=== PATIENT | male | born 1990 | race Caucasian/White ===

== ENCOUNTER 2022-04-19 16:46 | Emergency (ER) | payer OTHER ==
[~2022-04-19 16:46] MED LIST: BACTRIM DS TAB1 EACH PO; NORCO 7.5-3251 EACH PO; PERCOCET 5/325 T1 EA PO; TYLENOL WITH C1 EACH PO
[2022-04-19 18:12] LABS: HEMOGLOBIN 16.2 gm/dl (14.0-17.5); RED BLOOD COUNT 4.89 M/UL (4.20-5.50); WHITE BLOOD COUNT 12.8 K/UL (4.5-11.0)
[2022-04-19 18:33] LABS: BUN/CREATININE RATIO 8 (0-10)
[2022-04-19] MEDS ORDERED: BACTRIM DS TAB1 EACH PO (19:30)
[2022-04-19] MEDS ORDERED: OMNICEF 300 MG300 MG PO (19:30)
== END 2022-04-19 20:10 | disposition home or self-care (01) ==
LOC: ER1 16:46
DX: L03.113 Cellulitis of right upper limb (principal); F17.210 Nicotine dependence, cigarettes, uncomplicated
CPT/HCPCS: 73070; 73090; 80053; 83605; 85025; 87040; 96372; 99283; J0696